=== PATIENT | male | born 1985 | race Caucasian/White ===

== ENCOUNTER 2016-10-16 03:46 | Emergency (ER) | payer MEDICARE, MEDICAID ==
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
[2016-10-16] MEDS ORDERED: ACETAMINOPHEN 325 MG TABLET PO ONE (07:41)
[2016-10-16] MEDS ORDERED: IBUPROFEN 600 MG TABLET PO ONE (07:42)
[2016-10-16 07:57] VITALS: BP 110/67
== END 2016-10-16 08:20 | disposition home or self-care (01) ==
LOC: ER 03:46
DX: S06.0X9A Concussion with loss of consciousness of unspecified duration, initial encounter (principal); W03.XXXA Other fall on same level due to collision with another person, initial encounter; Y93.61 Activity, american tackle football; Y92.009 Unspecified place in unspecified non-institutional (private) residence as the place of occurrence of the external cause; R51 Headache; F17.200 Nicotine dependence, unspecified, uncomplicated; H54.42 Blindness, left eye, normal vision right eye; H55.00 Unspecified nystagmus; Z88.0 Allergy status to penicillin
CPT/HCPCS: 99284; 70450; A9270 ×2

== ENCOUNTER 2016-12-31 17:53 | Emergency (ER) | payer MEDICARE, MEDICAID ==
[2016-12-31] MEDS ORDERED: CEPHALEXIN 500 MG CAPSULE PO ONE (19:17)
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
[2016-12-31 19:44] VITALS: BP 108/57
== END 2016-12-31 20:02 | disposition home or self-care (01) ==
LOC: ER 17:53
DX: L73.9 Follicular disorder, unspecified (principal); Z88.0 Allergy status to penicillin; F17.210 Nicotine dependence, cigarettes, uncomplicated; Z71.6 Tobacco abuse counseling
CPT/HCPCS: 99282; A9270

== ENCOUNTER 2017-02-01 14:44 | Emergency (ER) | payer MEDICARE, MEDICAID ==
[2017-02-01] MEDS ORDERED: DIPH/PERTUSS(ACELL)/TETANUS VAC/PF 0.5 ML SYR (>=10YO) IM ONE (14:56)
[2017-02-01] MEDS ORDERED: OXYCODONE-ACETAMINOPHEN 5-325 MG TABLET PO ONE (14:57)
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
[2017-02-01] MEDS ORDERED: CEFAZOLIN 1 GM/D5W RTU 50 ML IV ONE (15:53)
[2017-02-01 17:32] VITALS: BP 114/76
== END 2017-02-01 17:31 | disposition home or self-care (01) ==
LOC: ER 14:44
PROC: 2W3EX1Z Immobilization of Right Hand using Splint (ICD-10-PCS; principal; 2017-02-01)
DX: S61.401A Unspecified open wound of right hand, initial encounter (principal); W34.09XA Accidental discharge from other specified firearms, initial encounter; Y92.007 Garden or yard of unspecified non-institutional (private) residence as the place of occurrence of the external cause; Z23 Encounter for immunization
CPT/HCPCS: 99284; 90471; 96365; 73130; 90715; 29125; J0690; A9270

== ENCOUNTER 2017-02-04 10:46 | Emergency (ER) | payer MEDICARE, MEDICAID ==
[2017-02-04 10:52] VITALS: BP 118/73
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
== END 2017-02-04 11:55 | disposition home or self-care (01) ==
LOC: ER 10:46
PROC: 2W3EX1Z Immobilization of Right Hand using Splint (ICD-10-PCS; principal; 2017-02-04)
DX: S61.431D Puncture wound without foreign body of right hand, subsequent encounter (principal); W34.00XD Accidental discharge from unspecified firearms or gun, subsequent encounter
CPT/HCPCS: 99283

== ENCOUNTER 2017-04-14 00:49 | Emergency (ER) | payer MEDICARE, MEDICAID ==
[2017-04-14 00:58] VITALS: BP 124/71
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
== END 2017-04-14 02:19 | disposition home or self-care (01) ==
LOC: ER 00:49
DX: S69.91XA Unspecified injury of right wrist, hand and finger(s), initial encounter (principal); R20.0 Anesthesia of skin; X58.XXXA Exposure to other specified factors, initial encounter
CPT/HCPCS: 99283

== ENCOUNTER 2017-05-08 05:33 | Emergency (ER) | payer MEDICARE, MEDICAID ==
[2017-05-08 05:41] VITALS: BP 114/61
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
[2017-05-08] MEDS ORDERED: HYDROCODONE/ACETAMINOPHEN 5-325 MG TABLET PO ONE (06:00)
== END 2017-05-08 06:06 | disposition home or self-care (01) ==
LOC: ER 05:33
DX: R20.0 Anesthesia of skin (principal); M79.641 Pain in right hand; F17.210 Nicotine dependence, cigarettes, uncomplicated
CPT/HCPCS: 99283; A9270

== ENCOUNTER 2017-05-14 14:27 | Emergency (ER) | payer MEDICARE, MEDICAID ==
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
[2017-05-14 15:10] VITALS: BP 101/57
== END 2017-05-14 15:08 | disposition home or self-care (01) ==
LOC: ER 14:27
DX: R20.0 Anesthesia of skin (principal); Z98.890 Other specified postprocedural states; F17.210 Nicotine dependence, cigarettes, uncomplicated
CPT/HCPCS: 99283

== ENCOUNTER 2017-05-31 04:12 | Emergency (ER) | payer MEDICARE, MEDICAID ==
[2017-05-31 04:20] VITALS: BP 114/65
[2017-05-31] MEDS ORDERED: CEPHALEXIN 500 MG CAPSULE PO ONE (04:38)
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
[2017-05-31] MEDS ORDERED: IBUPROFEN 800 MG TABLET PO ONE (05:09)
[2017-05-31] MEDS ORDERED: ACETAMINOPHEN 325 MG TABLET PO ONE (05:09)
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
== END 2017-05-31 06:48 | disposition home or self-care (01) ==
LOC: ER 04:12
DX: S61.432A Puncture wound without foreign body of left hand, initial encounter (principal); S60.221A Contusion of right hand, initial encounter; X99.8XXA Assault by other sharp object, initial encounter; F17.210 Nicotine dependence, cigarettes, uncomplicated
CPT/HCPCS: 99406; 99283; 73130; A9270 ×3

== ENCOUNTER 2017-07-04 23:33 | Emergency (ER) | payer MEDICARE, MEDICAID ==
[2017-07-04 23:51] VITALS: BP 125/65
--- NOTE | 2017-07-05 01:56 | RADIOLOGY REPORT (SQ) ---
EXAM DESCRIPTION: SHOULDER RIGHT 2 OR MORE VIEWS COMPLETED DATE/TIME: 07/05/2017 1:06 am REASON FOR STUDY: injury COMPARISON: 11/17/2011. NUMBER OF VIEWS: Three views. TECHNIQUE: Internal rotation, external rotation, and Y view images acquired of the right shoulder. LIMITATIONS: None. FINDINGS: MINERALIZATION: Normal. BONES: Osteotomy plate and screw fixation of the right clavicle, multiple metallic anchors of the rig ht glenoid, mild dextroconvexity of the thoracic spine. Surgical clip overlies the scapula. No sign ificant interval change. JOINTS: No dislocation. VISUALIZED LUNGS AND RIBS: No pneumothorax. No rib fracture. SOFT TISSUES: No radiopaque foreign body. OTHER: No other significant finding. IMPRESSION: No acute findings. Hardware. TECHNICAL DOCUMENTATION: JOB ID: [id number] [employer]- All Rights Reserved
[2017-07-05] MEDS ORDERED: ACETAMINOPHEN 325 MG TABLET PO ONE (02:37)
[2017-07-05] MEDS ORDERED: LIDOCAINE 5% (700 MG) TRANSDERMAL ADH..PATCH TP ONE (02:37)
[2017-07-05] MEDS ORDERED: IBUPROFEN 600 MG TABLET PO ONE (02:37)
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
== END 2017-07-05 02:58 | disposition home or self-care (01) ==
LOC: ER 23:33
DX: S49.91XA Unspecified injury of right shoulder and upper arm, initial encounter (principal); M25.511 Pain in right shoulder; X50.0XXA Overexertion from strenuous movement or load, initial encounter; F17.200 Nicotine dependence, unspecified, uncomplicated; Z87.81 Personal history of (healed) traumatic fracture; Z98.890 Other specified postprocedural states; Z88.0 Allergy status to penicillin
CPT/HCPCS: 99283; 73030; A9270 ×2

== ENCOUNTER 2017-07-06 20:05 | Emergency (ER) | payer MEDICARE, MEDICAID ==
[2017-07-06 20:38] VITALS: BP 122/78
[2017-07-06] MEDS ORDERED: KETOROLAC TROMETHAMINE INJ/PF 30 MG/1 ML SDV IM ONE (21:04)
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
== END 2017-07-06 21:23 | disposition home or self-care (01) ==
LOC: ER 20:05
DX: M19.011 Primary osteoarthritis, right shoulder (principal); M25.511 Pain in right shoulder; Z98.890 Other specified postprocedural states; Z87.81 Personal history of (healed) traumatic fracture
CPT/HCPCS: 99283; 96372; J1885

== ENCOUNTER 2017-10-20 18:00 | Emergency (ER) | payer MEDICARE, MEDICAID ==
[2017-10-20] MEDS ORDERED: DIAZEPAM 5 MG TABLET PO ONE (18:54)
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
[2017-10-20 19:11] VITALS: BP 111/79
--- NOTE | 2017-10-21 09:26 | EKG REPORT ---
SEVERITY:- BORDERLINE ECG - SINUS TACHYCARDIA BORDERLINE INFERIOR Q WAVES BORDERLINE PROLONGED QT INTERVAL : Confirmed by: Radha Ladd 21-Oct-2017 09:25:56
== END 2017-10-20 19:10 | disposition home or self-care (01) ==
LOC: ER 18:00
DX: F13.239 Sedative, hypnotic or anxiolytic dependence with withdrawal, unspecified (principal); F19.230 Other psychoactive substance dependence with withdrawal, uncomplicated; R56.9 Unspecified convulsions; F17.200 Nicotine dependence, unspecified, uncomplicated
CPT/HCPCS: 93005; 99284; 93010; A9270